=== PATIENT | female | born 1970 | race Hispanic/Latino ===

== ENCOUNTER 2019-06-27 20:39 | Emergency (ER) | payer OTHER ==
--- NOTE | 2019-06-28 00:21 | EDPHYS ---
Physician Documentation [facility] Name: Stacey Kim Age: 48 yrs Sex: Female : 1970 Arrival Date: 06/27/2019 Time: 20:42 Bed 30 Private MD: ED Physician Spencer Blount HPI: 06/27 21:53 This 48 yrs old Female presents to ER via Ambulatory with complaints of tw4 Numbness Of Arm. 21:53 The patient's problem is reported as paresthesias, in right upper extremity, in left tw4 upper extremity. Onset: The symptoms/episode began/occurred today. Duration: This was a single incident. Context: the episode(s) was witnessed, by no one. The symptoms are alleviated by nothing. The symptoms are aggravated by nothing. Associated signs and symptoms: The patient has no apparent associated signs or symptoms. Severity of symptoms: At their worst the symptoms were mild in the emergency department the symptoms are unchanged. The patient has not experienced similar symptoms in the past. Historical: - Allergies: 21:12 Latex, Natural Rubber; tr5 21:12 nafcillin sodium; tr5 - Home Meds: 21:12 None [Active]; tr5 - PSHx: 21:12 neck surgery; tr5 - Immunization history:: Adult Immunizations up to date. - Social history:: Smoking status: Patient/guardian denies using tobacco, never smoked. - Ebola Screening: : No symptoms or risks identified at this time. ROS: 21:53 Constitutional: Negative for fever, chills, and weight loss, Eyes: Negative for injury, tw4 pain, redness, and discharge, Cardiovascular: Negative for chest pain, palpitations, and edema, Respiratory: Negative for shortness of breath, cough, wheezing, and pleuritic chest pain, Abdomen/GI: Negative for abdominal pain, nausea, vomiting, diarrhea, and constipation, Back: Negative for injury and pain, MS/Extremity: Negative for injury and deformity, Skin: Negative for injury, rash, and discoloration. Exam: 21:53 Constitutional: This is a well developed, well nourished patient who is awake, alert, tw4 and in no acute distress. Head/Face: Normocephalic, atraumatic. Cardiovascular: Regular rate and rhythm with a normal S1 and S2. No gallops, murmurs, or rubs. Normal PMI, no JVD. No pulse deficits. Respiratory: Lungs have equal breath sounds bilaterally, clear to auscultation and percussion. No rales, rhonchi or wheezes noted. No increased work of breathing, no retractions or nasal flaring. Abdomen/GI: Soft, non-tender, with normal bowel sounds. No distension or tympany. No guarding or rebound. No evidence of tenderness throughout. Back: No spinal tenderness. No costovertebral tenderness. Full range of motion. MS/ Extremity: Pulses equal, no cyanosis. Neurovascular intact. Full, normal range of motion. Neuro: Awake and alert, GCS 15, oriented to person, place, time, and situation. Cranial nerves II-XII grossly intact. Motor strength 5/5 in all extremities. Sensory grossly intact. Cerebellar exam normal. Normal gait. 06/28 03:55 Radiologist reports: negative for acute changes tw4 Vital Signs: 06/27 20:54 BP 118 / 54; Pulse 76; Resp 16; Temp 99.0(O); Pulse Ox 98% ; lt1 21:12 BP 112 / 53; Pulse 88; Resp 16; Temp 98.2(O); Pulse Ox 100% on R/A; tr5 MDM: 20:55 Patient medically screened. tw4 06/28 03:54 Differential diagnosis: CVA, TIA, metabolic disorder, drug effects, peripheral tw4 neuropathy. Data reviewed: vital signs, nurses notes. Data reviewed: radiologic studies, CT scan. Data interpreted: Pulse oximetry: Interpretation: normal. Counseling: I had a detailed discussion with the patient and/or guardian regarding: the historical points, exam findings, and any diagnostic results supporting the discharge/admit diagnosis, radiology results. 06/27 21:24 Order name: CT C Spine tw4 Administered Medications: No medications were administered Disposition: 06/28/19 00:19 Discharged to Home. Impression: peripheral neuropathy. - Condition is Stable. - Discharge Instructions: Peripheral Neuropathy. - Medication Reconciliation Form, Thank You Letter, Antibiotic Education, Prescription Opioid Use form. - Follow up: Private Physician; When: Upon discharge from the Emergency Department; Reason: Recheck today's complaints, Continuance of care. - Problem is new. - Symptoms have improved. Signatures: Dispatcher [employer] EDMS Spencer Blount MD MD tw4 George Stallings RN RN tr5 Corrections: (The following items were deleted from the chart) 00:26 00:19 06/28/2019 00:19 Discharged to Home. Impression: peripheral neuropathy. Condition tr5 is Stable. Forms are Medication Reconciliation Form, Thank You Letter, Antibiotic Education, Prescription Opioid Use. Follow up: Private Physician; When: Upon discharge from the Emergency Department; Reason: Recheck today's complaints, Continuance of care. Problem is new. Symptoms have improved. tw4
--- NOTE | 2019-06-28 00:21 | ER ---
Nurse's Notes [facility] Name: Stacey Kim Age: 48 yrs Sex: Female : 1970 Arrival Date: 06/27/2019 Time: 20:42 Bed 30 Private MD: Diagnosis: peripheral neuropathy Presentation: 06/27 21:06 Presenting complaint: Patient states: "Last week i fell down the stairs last week and tr5 now i am having some left shoulder pain and tingling in both of my arms. I had neck surgery 2 years ago and it felt similar to this before i had the surgery. ". Transition of care: patient was not received from another setting of care. Onset of symptoms was June 27, 2019. Risk Assessment: Do you want to hurt yourself or someone else? Patient reports no desire to harm self or others. Initial Sepsis Screen: Does the patient meet any 2 criteria? No. Patient's initial sepsis screen is negative. Does the patient have a suspected source of infection? No. Patient's initial sepsis screen is negative. Care prior to arrival: None. 21:06 Method Of Arrival: Ambulatory tr5 21:06 Acuity: LULI 3 tr5 Historical: - Allergies: 21:12 Latex, Natural Rubber; tr5 21:12 nafcillin sodium; tr5 - Home Meds: 21:12 None [Active]; tr5 - PSHx: 21:12 neck surgery; tr5 - Immunization history:: Adult Immunizations up to date. - Social history:: Smoking status: Patient/guardian denies using tobacco, never smoked. - Ebola Screening: : No symptoms or risks identified at this time. Screenin:10 Abuse screen: Denies threats or abuse. Nutritional screening: No deficits noted. tr5 Tuberculosis screening: No symptoms or risk factors identified. Fall Risk None identified. Assessment: 21:10 General: Appears in no apparent distress. Behavior is calm, cooperative, appropriate tr5 for age. Pain: Complains of pain in left scapular area. Neuro: Level of Consciousness is awake, alert, obeys commands, Oriented to person, place, time, Stem Shaper are equal bilaterally Moves all extremities. Neuro: Reports numbness in right arm and left arm. Cardiovascular: Heart tones present Capillary refill < 3 seconds. Respiratory: Airway is patent Respiratory effort is even, unlabored, Respiratory pattern is regular, symmetrical. GI: No signs and/or symptoms were reported involving the gastrointestinal system. : No signs and/or symptoms were reported regarding the genitourinary system. EENT: No signs and/or symptoms were reported regarding the EENT system. Derm: No signs and/or symptoms reported regarding the dermatologic system. Musculoskeletal: No signs and/or symptoms reported regarding the musculoskeletal system. Vital Signs: 20:54 BP 118 / 54; Pulse 76; Resp 16; Temp 99.0(O); Pulse Ox 98% ; lt1 21:12 BP 112 / 53; Pulse 88; Resp 16; Temp 98.2(O); Pulse Ox 100% on R/A; tr5 ED Course: 20:42 Patient arrived in ED. cf2 20:45 George Stallings, RN is Primary Nurse. tr5 20:55 Spencer Blount MD is Attending Physician. tw4 21:10 Placed in gown. Bed in low position. Call light in reach. tr5 21:11 Triage completed. tr5 21:12 Arm band placed on Patient placed. tr5 22:16 CT C Spine In Process Unspecified. EDVA 06/28 00:26 No provider procedures requiring assistance completed. Patient did not have IV access tr5 during this emergency room visit. Administered Medications: No medications were administered Outcome: 00:19 Discharge ordered by . tw4 00:26 Discharged to home ambulatory. tr5 00:26 Condition: stable 00:26 Discharge instructions given to patient, Instructed on discharge instructions, follow up and referral plans. Demonstrated understanding of instructions, follow-up care. 00:26 Patient left the ED. tr5 Signatures: Dispatcher [employer] EDVA Spencer Blount MD MD tw4 Elle Patterson lt1 George Stallings, RN RN tr5 Jeremie García cf2
[2019-06-28 02:31] VITALS: BP 112/53; TEMP 98.2; O2SAT 100
--- OUTSIDE RECORDS SUMMARY | 2019-06-28 07:18 | XMS REPORT ---
:1970 [facility] Address [address] [place] [address] Dr. Corrales [address] [place] [id number] Care Team Providers Name Role Phone Unavailable Unavailable Unavailable Problems This patient has no known problems. Allergies, Adverse Reactions, Alerts This patient has no known allergies or adverse reactions. Medications This patient has no known medications.
--- NOTE | 2019-06-28 10:14 | RAD REPORT ---
EXAM DESCRIPTION: CT C Spine Wo Con CLINICAL HISTORY: Fall 1 week ago, left shoulder pain, numbness and tingling TECHNIQUE: Contiguous axial CT images obtained through the cervical spine without IV contrast. Coron al and sagittal reformatted images also provided. This exam was performed according to our departmental dose-optimization program, which includes autom ated exposure control, adjustment of the mA and/or kV according to patient size and/or use of iterati ve reconstruction technique. COMPARISON: None available for comparison FINDINGS: Vertebra: No acute fracture or subluxation. Disc spaces: Prior anterior fusion at C4-C7 with C5 and C6 corpectomy and interposition graft. Mild t o moderate multilevel degenerative changes. No canal stenosis. Multilevel foraminal compromise. Prevertebral soft tissues: Unremarkable Lung apices: Clear IMPRESSION: No acute injury. Electronically signed by: Heri Vale MD 06/27/2019 11:15 PM CREAM RIPENER Due to temporary technical issues with the PACS/Fluency reporting system, reports are being signed by the in house radiologist as a courtesy to ensure prompt reporting. The interpreting radiologist is f ully responsible for the content of the report.
== END 2019-06-28 00:26 | disposition home or self-care (01) ==
LOC: ER 20:39
DX: G62.9 Polyneuropathy, unspecified (principal); Z91.040 Latex allergy status
CPT/HCPCS: 72125; 99283

== ENCOUNTER 2021-03-31 20:17 | Emergency (ER) | payer BC, OTHER ==
--- OUTSIDE RECORDS SUMMARY | 2021-03-31 20:20 | XMS REPORT | Continuity of Care Document ---
:1970 Author Organization [facility] t Address [address] [place] [address] Care Team Providers Name Role Phone Tammy Parrish Primary Care Physician Boyd HERNANDEZ Attending Clinician Payers Payer Name Policy Type Policy Number Effective Date Expiration Date S ource Problems Condition Condition Condition Status Onset Resolution Last Treating Co mments Source Name Details Category Date Date Treatment Clinician Date Intractabl Intractabl Disease Active 0 M ethodi e headache e headache 1-15 st 00:00: Hospita 00 l Non-intrac Non-intrac Disease Active 0 M ethodi table table 1-15 st vomiting vomiting 00:00: Hospit a with with 00 l nausea nausea Fixation 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 8-03 st in spine in spine 00:00: Hospit a 00 l Cervical Cervical Disease Active [facility] spondylosi spondylosi 6-27 st s with s with 00:00: Hospita myelopathy myelopathy 00 l and and radiculopa radiculopa thy thy Cervical Cervical Disease Active [facility] spondylosi spondylosi 01-24 s with s with 00:00: Hospita myelopathy myelopathy 00 l Cervicalgi Cervicalgi Disease Active M ethodi a a 01-24 00:00: Hospita 00 l Allergies, Adverse Reactions, Alerts Allergy Allergy Status Severity Reaction(s) Onset Inactive Treating Comm ents Source Name Type Date Date Clinician Sulfamet Propensi Active Hives Method i hoxazole ty to 01-21 -Trimeth adverse 00:00: Hospita oprim reaction 00 l s to drug Latex Propensi Active Methodi ty to 01-21 adverse 00:00: Hospita reaction 00 l s to drug penicill DA Active U 2005-0 [facility] G [facility] [place] LATEX DA Active U 2005-0 [facility] 11[facility] [place] No Known DA Active U 2005-0 [facility] Contrast 11-24 [facility] Allergie [facility]: [facility] [place] No Known DA Active U 2005-0 [facility] Food 11-24 [facility] Allergie [facility]: [facility] [place] PENICILL DA Active U 2005-0 [facility] IN 11-24 [facility] [place] Family History Family Member Diagnosis Comments Start Date Stop Date Source Maternal aunt Cancer [facility] Maternal uncle Cancer [facility] Natural mother Clotting disorder Met [facility] Natural mother Hypertension [facility] Natural mother Pneumonia [facility] Natural mother Thyroid disease [facility] Natural sister Diabetes [facility] Natural brother Arthritis [facility] Natural brother Diabetes [facility] Natural brother Hypertension [facility] Natural father Diabetes [facility] Natural father Hypertension [facility] Natural father Thyroid disease [facility] Social History Social Habit Start Date Stop Date Quantity Comments Source Alcohol intake 2017-02-14 2017-02-14 Current drinker [facility]00 [facility] Alcohol Comment 2017-01-21 2017-01-21 every few months [facility] 00:[facility]00 Hospital Sex Assigned At [birth year] [facility] Smoking Status Start Date Stop Date Source Never smoker [facility] Medications Ordered Filled Start Stop Current Ordering Indication Dosage Frequency Signature Comments Components Source Medication Medication Date Date Medication? Clinician (SIG) Name Name levocetiriz 2017-0 Yes 5mg QD Take 5 mg M ethodi ine (XYZAL) 7-[address] 5 MG tablet 16:15: every Hospi ta 31 evening. l multivitami 2017- Yes 1{tbl} QD Take 1 Me thodi n with 7-[address] minerals 16:15: mouth Hospita tablet 31 daily. l Procedures This patient has no known procedures. Plan of Care Planned Activity Planned Date Details Comments Source Future Scheduled Test COVID-19 VACCINE (1) [facility] [code = COVID-19 VACCINE (1)] Future Scheduled Test Screening for [facility] malignant neoplasm of cervix (procedure) [code = 741267894] Future Scheduled Test INFLUENZA VACCINE [facility] [code = INFLUENZA VACCINE] Encounters Start End Encounter Admission Attending Care Care Encounter Source Date/Time Date/Time Type Type Clinicians Facility Department ID 2021-03-21 2021-03-21 Emergency [place], [facility] [id number] 12:48:00 20:08:00 Fernando Vidal [id number] [place] [id number] [place] [id number] Results Test Description Test Time Test Comments Results Result Sour e Comments - US TRANSVAGINAL 2020-06-15 W/PELVIS 10:50:00 [facility] : 1970 Sex: F * Patient Name: STEPHANIE EDEN Unit No: [id number] EXAMS: CPT CODE: [id number] US TRANSVAGINAL W/PELVIS 87037 Exam: Pelvic ultrasound. Exam date: June 15, 2020. CLINICAL HISTORY: Bleeding. COMPARISON: None. Real-time transabdominal and transvaginal imaging of the pelvis with spectral Doppler analysis and color-flow imaging demonstrates a 88 x 35 x 45 mm uterus. The endometrium measures 5 mm Mild irregularity of the uterine echotexture is noted with no evidence of fibroids. The right ovary measures 20 x 12 x 20 mm and has a normal sonographic appearance. Blood flow is identified in the ovary.. The left ovary measures 28 x 20 x 22 mm with a 19 mm follicular type cystBlood flow is identified within the ovary.. No free fluid or adnexal masses are identified. IMPRESSION: Minimal irregularity of the uterine echotexture with no discernible fibroids. No other significant finding identified. at 1050 Reported and signed by: Piper Hassan MD CC: Caity Anthony MD Technologist: Juan Vargas RDMS, RVT Probe: [id number] Trnscrbd D/ (1050) t.MODER.CLEO Orig Print D/T: S: 06/15/2020 (1053) [facility] NAME: STEPHANIE EDEN Radiology Department PHYS: Caity Anthony [address] : 1970 AGE: 49 SEX: F [place] [address] LOC: F.RAD PHONE #: [phone] EXAM DATE: 06/15/2020 STATUS: REG CLI FAX #: [phone] RAD NO: Page 1 Signed Report Patient Name: STEPHANIE EDEN Unit No: [id number] EXAMS: CPT CODE: [id number] US TRANSVAGINAL W/PELVIS 99857 <Continued> [facility] NAME: STEPHANIE EDEN Radiology Department PHYS: Caity Anthony [address] : 1970 AGE: 49 SEX: F [place] [address] LOC: F.RAD PHONE #: [phone] EXAM DATE: 06/15/2020 STATUS: REG CLI FAX #: [phone] RAD NO: Page 2 Signed Report - US PELVIS 2020-06-15 COMPLETE 10:50:00 [facility] : 1970 Sex: F * Patient Name: STEPHANIE EDEN Unit No: [id number] EXAMS: CPT CODE: [id number] US PELVIS COMPLETE [id number] Exam: Pelvic ultrasound. Exam date: June 15, 2020. CLINICAL HISTORY: Bleeding. COMPARISON: None. Real-time transabdominal and transvaginal imaging of the pelvis with spectral Doppler analysis and color-flow imaging demonstrates a 88 x 35 x 45 mm uterus. The endometrium measures 5 mm Mild irregularity of the uterine echotexture is noted with no evidence of fibroids. The right ovary measures 20 x 12 x 20 mm and has a normal sonographic appearance. Blood flow is identified in the ovary.. The left ovary measures 28 x 20 x 22 mm with a 19 mm follicular type cystBlood flow is identified within the ovary.. No free fluid or adnexal masses are identified. IMPRESSION: Minimal irregularity of the uterine echotexture with no discernible fibroids. No other significant finding identified. at 1050 Reported and signed by: Piper Hassan MD CC: Caity Anthony MD Technologist: Juan Vargas RDMS, RVT Probe: Trnscrbd D/ (1050) t.SDR.CER Orig Print D/T: S: 06/15/2020 (1053) [facility] NAME: STEPHANIE EDEN Radiology Department PHYS: DANIAL Caity Anthony [address] : 1970 AGE: 49 SEX: F [place], [place] [address] LOC: F.RAD PHONE #: [phone] EXAM DATE: 06/15/2020 STATUS: REG CLI FAX #: [phone] RAD NO: Page 1 Signed Report Patient Name: STEPHANIE EDEN Unit No: [id number] EXAMS: CPT CODE: [id number] US PELVIS COMPLETE [id number] <Continued> [facility] NAME: STEPHANIE EDEN Radiology Department PHYS: Caity Malone [address] : 1970 AGE: 49 SEX: F [place], [place] [address] LOC: F.RAD PHONE #: [phone] EXAM DATE: 06/15/2020 STATUS: REG CLI FAX #: [phone] RAD NO: Page 2 Signed Report - DUP AB/PEL/SC/LTD 2020-06-15 10:50:00 [facility] : 1970 Sex: F * Patient Name: STEPHANIE EDEN Unit No: [id number] EXAMS: CPT CODE: [id number] DUP AB/PEL/SC/LTD 85690 Exam: Pelvic ultrasound. Exam date: June 15, 2020. CLINICAL HISTORY: Bleeding. COMPARISON: None. Real-time transabdominal and transvaginal imaging of the pelvis with spectral Doppler analysis and color-flow imaging demonstrates a 88 x 35 x 45 mm uterus. The endometrium measures 5 mm Mild irregularity of the uterine echotexture is noted with no evidence of fibroids. The right ovary measures 20 x 12 x 20 mm and has a normal sonographic appearance. Blood flow is identified in the ovary.. The left ovary measures 28 x 20 x 22 mm with a 19 mm follicular type cystBlood flow is identified within the ovary.. No free fluid or adnexal masses are identified. IMPRESSION: Minimal irregularity of the uterine echotexture with no discernible fibroids. No other significant finding identified. at 1050 Reported and signed by: Piper Hassan MD CC: Caity Anthony MD Technologist: Juan Vargas RDMS, RVT Probe: Trnscrbd D/ (1050) t.SDR.CER Orig Print D/T: S: 06/15/2020 (1053) [facility] NAME: STEPHANIE EDEN Radiology Department PHYS: Caity Anthony [address] : 1970 AGE: 49 SEX: F [place] [address] LOC: Judi.RAD PHONE #: [phone] EXAM DATE: 06/15/2020 STATUS: REG CLI FAX #: [phone] RAD NO: Page 1 Signed Report Patient Name: STEPHANIE EDEN Unit No: [id number] EXAMS: CPT CODE: [id number] DUP AB/PEL/SC/LTD 85046 <Continued> [facility] NAME: STEPHANIE EDEN Mateusz Radiology Department PHYS: Caity Anthony [address] : 1970 AGE: 49 SEX: F [place] [address] LOC: Judi.RAD PHONE #: [phone] EXAM DATE: 06/15/2020 STATUS: REG CLI FAX #: [phone] RAD NO: Page 2 Signed Report
[2021-03-31 23:19] LABS: Absolute Lymphocytes (CBC) 3.1 K/uL (0.7-4.9); Basophils % 1.4 % (0-1.3); Hematocrit 38.3 % (36.0-45.0); MPV 8.2 fL (7.6-11.3); RBC Red Blood Cell Count 4.83 M/uL (3.86-4.86)
[2021-03-31 23:20] LABS: Protime INR 0.97
[2021-03-31 23:40] LABS: ALT/SGPT 22 U/L (12-78); AST/SGOT 14 U/L (15-37); Albumin 3.7 g/dL (3.4-5.0); Alkaline Phosphatase 77 U/L (45-117); BUN Blood Urea Nitrogen 11 mg/dL (7-18); Bicarbonate 29 mmol/L (21-32); Bilirubin Direct < 0.1 mg/dL (0-0.2); Bilirubin Total 0.3 mg/dL (0.2-1.0); Glucose Level 94 mg/dL (74-106); Magnesium 2.2 mg/dL (1.8-2.4); NT PRO-BNP 12 pg/mL (<125); Potassium 4.2 mmol/L (3.5-5.1); Protein, Total 7.3 g/dL (6.4-8.2); Sodium Level 142 mmol/L (136-145); Troponin (Emerg Dept Use Only) < 0.02 ng/mL (0.0-0.045)
[2021-04-01] MEDS ORDERED: ONDANSETRON 4 MG/2 ML VIAL ONE (01:03)
[2021-04-01] MEDS ORDERED: MORPHINE 4 MG/ML SYR ONE (01:03)
[2021-04-01] MEDS ORDERED: FAMOTIDINE 20 MG/2 ML VIAL IV ONE (01:03)
[2021-04-01] MEDS ORDERED: NA CHLORIDE 0.9% 1,000 ML ONE (01:03)
[2021-04-01] MEDS ORDERED: NA CHLORIDE 0.9% 250 ML ONE (04:12)
[2021-04-01] MEDS ORDERED: CASIRIVIMAB/IMDEVIMAB 10 ML VIAL ONE (04:13)
[2021-04-01] MEDS ORDERED: NA CHLORIDE 0.9% 50 ML ONE (06:06)
--- NOTE | 2021-04-01 06:41 | ER ---
Nurse's Notes [facility] Name: Stacey Kim Age: 50 yrs Sex: Female : 1970 Arrival Date: 03/31/2021 Time: 20:19 Bed 12 Private MD: Diagnosis: COVID Pneumonia Presentation: 03/31 20:58 Chief complaint: Patient states: chest pain and left calf pain that started em morning, was covid pos. on March 07, reports cough, shortness of breath, denies fever. Coronavirus screen: Client denies travel out of the [place] in the last 14 days. Ebola Screen: Patient negative for fever greater than or equal to 101.5 degrees Fahrenheit, and additional compatible Ebola Virus Disease symptoms Patient denies exposure to infectious person. Patient denies travel to an Ebola-affected area in the 21 days before illness onset. No symptoms or risks identified at this time. Initial Sepsis Screen: Does the patient meet any 2 criteria? HR > 90 bpm. No. Patient's initial sepsis screen is negative. Does the patient have a suspected source of infection? Yes: Productive cough/pneumonia. Risk Assessment: Do you want to hurt yourself or someone else? Patient reports no desire to harm self or others. Onset of symptoms was March 31, 2021. 20:58 Method Of Arrival: Ambulatory em 20:58 Acuity: LULI 3 em Historical: - Allergies: 21:02 nafcillin sodium; em 21:02 Latex, Natural Rubber; em 21:02 Cipro; em 21:02 Bactrim; em - PMHx: 21:03 None; em - PSHx: 21:02 Cholecystectomy; Tonsillectomy; gastric sleeve; em - Immunization history:: Client reports having NOT received the Covid vaccine. - Social history:: Smoking status: Patient denies any tobacco usage or history of. Screenin:00 Abuse screen: Denies threats or abuse. Nutritional screening: No deficits noted. em Tuberculosis screening: No symptoms or risk factors identified. Fall Risk None identified. Assessment: 04/01 00:30 General: Appears in no apparent distress. Behavior is calm, cooperative, appropriate ea for age. Pain: Complains of pain in chest Pain does not radiate. Neuro: Level of Consciousness is awake, alert, obeys commands, Oriented to person, place, time. Cardiovascular: Patient's skin is warm and dry. Respiratory: Airway is patent Respiratory effort is even, unlabored, Respiratory pattern is regular, symmetrical. Derm: Skin is pink, warm \T\ dry. 01:00 Reassessment: Ultrasound at bedside; patient reports no pain to chest or left calf at lp1 this time. 02:30 Reassessment: Patient appears in no apparent distress at this time. Patient is alert, lp1 oriented x 3, equal unlabored respirations, skin warm/dry/pink. Patient resting, eyes closed, respirations even unlabored. 03:46 Reassessment: Patient read fact sheet for Regeneron infusion; Consent signed. lp1 04:30 Reassessment: Regeneron infusion began at this time; patient being monitored. lp1 06:00 Reassessment: Patient appears in no apparent distress at this time. Patient is alert, lp1 oriented x 3, equal unlabored respirations, skin warm/dry/pink. Patient denies pain at this time. Vital Signs: 03/31 20:58 BP 142 / 70; Pulse 98; Resp 18; Temp 98.1; Pulse Ox 99% on R/A; Weight 72.57 kg; Height em 5 ft. 1 in. (154.94 cm); 04/01 01:00 BP 115 / 55; Pulse 90; Resp 22; Pulse Ox 100% on R/A; lp1 04:30 BP 113 / 74; Pulse 83; Resp 20; Temp 97.8(O); Pulse Ox 99% on R/A; lp1 04:45 BP 103 / 53; Pulse 82; Resp 20; Pulse Ox 100% on R/A; lp1 05:00 BP 101 / 60; Pulse 82; Resp 19; Pulse Ox 99% on R/A; lp1 05:15 BP 115 / 65; Pulse 72; Resp 14; Pulse Ox 100% on R/A; lp1 05:30 BP 134 / 62; Pulse 76; Resp 16; Pulse Ox 99% on R/A; lp1 05:45 BP 109 / 67; Pulse 76; Resp 16; Pulse Ox 99% on R/A; lp1 06:00 BP 106 / 65; Pulse 78; Resp 16; Pulse Ox 100% on R/A; lp1 06:15 BP 112 / 63; Pulse 79; Resp 16; Pulse Ox 99% on R/A; lp1 06:30 BP 134 / 62; Pulse 76; Resp 16; Pulse Ox 99% on R/A; lp1 06:45 BP 104 / 59; Pulse 78; Resp 19; Pulse Ox 99% on R/A; Pain 0/10; lp1 14 20:58 Body Mass Index 30.23 (72.57 kg, 154.94 cm) em ED Course: 03/31 20:19 Patient arrived in ED. cf2 20:50 Inserted saline lock: 20 gauge in right antecubital area, using aseptic technique. em Blood collected. 20:50 Initial lab(s) drawn, by me, sent to lab. em 21:00 Patient has correct armband on for positive identification. Pulse ox on. NIBP on. em 21:02 Triage completed. em 21:02 Arm band placed on. em 23:54 XRAY Chest (1 view) In Process Unspecified. EDMS 08 00:00 Sunny Gray MD is Attending Physician. [facility] 00:39 Cristin Youssef RN is Primary Nurse. lp1 01:00 COVID swab sent to lab. Flu and/or RSV swab sent to lab. lp1 01:12 CT Chest For PE Angio In Process Unspecified. EDMS 01:12 CT Abd/Pelvis - IV Contrast Only In Process Unspecified. EDMS 01:15 Patient maintains SpO2 saturation greater than 95% on room air. lp1 01:39 US Extremity Venous Unilateral Ltd In Process Unspecified. EDMS 02:49 Repeat lab(s) drawn. by me, sent to lab. lp1 02:49 No provider procedures requiring assistance completed. lp1 06:57 IV discontinued, No redness/swelling at site. Pressure dressing applied. lp1 Administered Medications: 01:00 Drug: NS 0.9% 1000 ml Route: IV; Rate: 1000 ml; Site: right antecubital; lp1 02:10 Follow up: IV Status: Completed infusion; IV Intake: 1000ml lp1 01:00 Drug: Pepcid (famotidine) 20 mg Route: IVP; Site: right antecubital; lp1 02:00 Follow up: Response: No adverse reaction lp1 04:30 Drug: REGEN-COV Dose Pack 120 mg/mL-120 mg/mL (EUA) 250 ml Route: IV; Rate: per lp1 protocol; Site: right antecubital; 05:45 Follow up: IV Status: Completed infusion; IV Intake: 260ml lp1 Intake: 02:10 IV: 1000ml; Total: 1000ml. lp1 05:45 IV: 260ml; Total: 1260ml. lp1 Outcome: 06:41 Discharge ordered by . jace 06:57 Discharged to home ambulatory. lp1 06:57 Condition: good 06:57 Discharge instructions given to patient, Instructed on discharge instructions, follow up and referral plans. medication usage, Demonstrated understanding of instructions, follow-up care, medications, Prescriptions given X 3. 07:02 Patient left the ED. lp1 Signatures: Dispatcher [employer] EDGuevara Espana RN Cristin Shankar RN RN lp1 Gale Mccann RN RN ea Frazier, Celesta 2 Sunny Gray MD MD [facility]
--- NOTE | 2021-04-01 06:41 | EDPHYS ---
Physician Documentation [facility] Name: Stacey Kim Age: 50 yrs Sex: Female : 1970 Arrival Date: 03/31/2021 Time: 20:19 Bed 12 Private MD: ED Physician Sunny Gray HPI: 04/01 00:05 This 50 yrs old Female presents to ER via Ambulatory with complaints of Chest mh7 Pain. 00:05 The patient or guardian reports chest pain that is located primarily in the substernal mh7 area, epigastric area. 00:05 Onset: 3 day(s) ago. mh7 00:05 The pain does not radiate. mh7 00:05 Associated signs and symptoms: Pertinent positives: abdominal pain, cough, lower mh7 extremity pain, shortness of breath, Pertinent negatives: diaphoresis, dizziness, headache, lower extremity swelling, lightheadedness, nausea, near syncope, palpitations, recent travel, syncope, vomiting. 00:05 The chest pain is described as sharp. Duration: The patient or guardian reports mh7 multiple episodes, that are intermittent, that wax and wane. Modifying factors: The symptoms are alleviated by nothing. the symptoms are aggravated by cough. Severity of pain: At its worst the pain was moderate yesterday, in the emergency department the pain has improved moderately. Historical: - Allergies: 03/31 21:02 nafcillin sodium; em 21:02 Latex, Natural Rubber; em 21:02 Cipro; em 21:02 Bactrim; em - PMHx: 21:03 None; em - PSHx: 21:02 Cholecystectomy; Tonsillectomy; gastric sleeve; em - Immunization history:: Client reports having NOT received the Covid vaccine. - Social history:: Smoking status: Patient denies any tobacco usage or history of. ROS: 04/01 00:05 Constitutional: Negative for fever, chills, and weight loss, Eyes: Negative for injury, mh7 pain, redness, and discharge, ENT: Negative for injury, pain, and discharge, Neck: Negative for injury, pain, and swelling, Back: Negative for injury and pain, : Negative for injury, bleeding, discharge, and swelling, MS/Extremity: Negative for injury and deformity, Skin: Negative for injury, rash, and discoloration, Neuro: Negative for headache, weakness, numbness, tingling, and seizure, Psych: Negative for depression, anxiety, suicide ideation, homicidal ideation, and hallucinations, Allergy/Immunology: Negative for hives, rash, and allergies, Endocrine: Negative for neck swelling, polydipsia, polyuria, polyphagia, and marked weight changes, Hematologic/Lymphatic: Negative for swollen nodes, abnormal bleeding, and unusual bruising. Exam: 00:05 Constitutional: This is a well developed, well nourished patient who is awake, alert, mh7 and in no acute distress. Head/Face: Normocephalic, atraumatic. Eyes: Pupils equal round and reactive to light, extra-ocular motions intact. Lids and lashes normal. Conjunctiva and sclera are non-icteric and not injected. Cornea within normal limits. Periorbital areas with no swelling, redness, or edema. Neck: Trachea midline, no thyromegaly or masses palpated, and no cervical lymphadenopathy. Supple, full range of motion without nuchal rigidity, or vertebral point tenderness. No Meningismus. Chest/axilla: Normal chest wall appearance and motion. Nontender with no deformity. No lesions are appreciated. Cardiovascular: Regular rate and rhythm with a normal S1 and S2. No gallops, murmurs, or rubs. Normal PMI, no JVD. No pulse deficits. Respiratory: Lungs have equal breath sounds bilaterally, clear to auscultation and percussion. No rales, rhonchi or wheezes noted. No increased work of breathing, no retractions or nasal flaring. Abdomen/GI: Soft, non-tender, with normal bowel sounds. No distension or tympany. No guarding or rebound. No evidence of tenderness throughout. Back: No spinal tenderness. No costovertebral tenderness. Full range of motion. Skin: Warm, dry with normal turgor. Normal color with no rashes, no lesions, and no evidence of cellulitis. MS/ Extremity: Pulses equal, no cyanosis. Neurovascular intact. Full, normal range of motion. Neuro: Awake and alert, GCS 15, oriented to person, place, time, and situation. Cranial nerves II-XII grossly intact. Motor strength 5/5 in all extremities. Sensory grossly intact. Cerebellar exam normal. Normal gait. Psych: Awake, alert, with orientation to person, place and time. Behavior, mood, and affect are within normal limits. Vital Signs: 03/31 20:58 BP 142 / 70; Pulse 98; Resp 18; Temp 98.1; Pulse Ox 99% on R/A; Weight 72.57 kg; Height em 5 ft. 1 in. (154.94 cm); 04/01 01:00 BP 115 / 55; Pulse 90; Resp 22; Pulse Ox 100% on R/A; lp1 04:30 BP 113 / 74; Pulse 83; Resp 20; Temp 97.8(O); Pulse Ox 99% on R/A; lp1 04:45 BP 103 / 53; Pulse 82; Resp 20; Pulse Ox 100% on R/A; lp1 05:00 BP 101 / 60; Pulse 82; Resp 19; Pulse Ox 99% on R/A; lp1 05:15 BP 115 / 65; Pulse 72; Resp 14; Pulse Ox 100% on R/A; lp1 05:30 BP 134 / 62; Pulse 76; Resp 16; Pulse Ox 99% on R/A; lp1 05:45 BP 109 / 67; Pulse 76; Resp 16; Pulse Ox 99% on R/A; lp1 06:00 BP 106 / 65; Pulse 78; Resp 16; Pulse Ox 100% on R/A; lp1 06:15 BP 112 / 63; Pulse 79; Resp 16; Pulse Ox 99% on R/A; lp1 06:30 BP 134 / 62; Pulse 76; Resp 16; Pulse Ox 99% on R/A; lp1 06:45 BP 104 / 59; Pulse 78; Resp 19; Pulse Ox 99% on R/A; Pain 0/10; lp1 03/31 20:58 Body Mass Index 30.23 (72.57 kg, 154.94 cm) em MDM: 06:37 Differential diagnosis: acute myocardial infarction, acute pericarditis, anxiety, mh7 coronary artery disease chest wall pain, congestive heart failure costochondritis, gastroesophageal reflux disease (GERD), myocarditis, pericarditis, pneumonia, pneumothorax, pulmonary embolus. HEART Score: History: Slightly Suspicious (0), ECG: Normal (0), Age: > 45 and < 65 years (1), Risk Factors: No Risk Factors Known (0), Troponin: < or = 1 x Normal Limit (0), Total Score = 1. Data reviewed: vital signs, nurses notes, old medical records, lab test result(s), cardiac enzymes, CBC, electrolytes, Flu: negative Covid positive. Data reviewed: EKG, radiologic studies, CT scan, plain films. Data interpreted: Pulse oximetry: on room air is 100 %. Interpretation: normal. Counseling: I had a detailed discussion with the patient and/or guardian regarding: the historical points, exam findings, and any diagnostic results supporting the discharge/admit diagnosis, lab results, radiology results, the need for outpatient follow up, to return to the emergency department if symptoms worsen or persist or if there are any questions or concerns that arise at home. Response to treatment: the patient's symptoms have resolved after treatment, the patient's blood pressure is in an acceptable range, mental status has returned to baseline, the patient no longer shows bradycardia, the patient is not short of breath, the patient is not tachycardic, the patient's pain is gone, the patient's temperature has normalized, the patient's condition has returned to base line, the patient is now symptom free. 06:41 Patient medically screened. [facility] 03/31 22:45 Order name: Basic Metabolic Panel [facility] 03/31 22:45 Order name: CBC with Diff [facility] 03/31 22:45 Order name: LFT's [facility] 03/31 22:45 Order name: Magnesium; Complete Time: 00:02 [facility] 03/31 22:45 Order name: NT PRO-BNP; Complete Time: 00:02 [facility] 03/31 22:45 Order name: PT-INR; Complete Time: 00:02 [facility] 03/31 22:45 Order name: Troponin (emerg Dept Use Only); Complete Time: 00:02 [facility] 03/31 22:46 Order name: Basic Metabolic Panel; Complete Time: 00:02 [facility] 03/31 22:46 Order name: CBC with Automated Diff; Complete Time: 00:02 [facility] 03/31 22:46 Order name: Liver (Hepatic) Function; Complete Time: 00:02 [facility] 04/01 00:22 Order name: Lipase; Complete Time: 01:46 [facility] 04/01 00:25 Order name: Influenza Screen (a \T\ B) [facility] 04/01 00:26 Order name: Influenza Screen (A ; Complete Time: 02:33 [facility] 03/31 21:15 Order name: EKG; Complete Time: 21:15 cp 03/31 21:15 Order name: EKG - Nurse/Tech; Complete Time: 01:16 cp 03/31 22:45 Order name: XRAY Chest (1 view) [facility] 03/31 22:45 Order name: Cardiac monitoring; Complete Time: 00:02 [facility] 03/31 22:45 Order name: IV Saline Lock; Complete Time: 00:02 [facility] 04/01 00:23 Order name: CT Chest For PE Angio [facility] 04/01 00:23 Order name: CT Abd/Pelvis - IV Contrast Only [facility] 04/01 00:23 Order name: US Extremity Venous Unilateral Ltd [facility] 04/01 01:55 Order name: Troponin (emerg Dept Use Only) [facility] 04/01 01:56 Order name: Troponin (Emerg Dept Use Only); Complete Time: 05:48 [facility] 04/01 02:44 Order name: SARS-COV-2 RT PCR; Complete Time: 02:55 [facility] 03/31 22:45 Order name: Labs collected and sent; Complete Time: 00:02 [facility] 03/31 22:45 Order name: O2 Per Protocol; Complete Time: 00:02 [facility] 03/31 22:45 Order name: O2 Sat Monitoring; Complete Time: 00:02 [facility] Administered Medications: 01:00 Drug: NS 0.9% 1000 ml Route: IV; Rate: 1000 ml; Site: right antecubital; lp1 02:10 Follow up: IV Status: Completed infusion; IV Intake: 1000ml 1 01:00 Drug: Pepcid (famotidine) 20 mg Route: IVP; Site: right antecubital; lp1 02:00 Follow up: Response: No adverse reaction lp1 04:30 Drug: REGEN-COV Dose Pack 120 mg/mL-120 mg/mL (EUA) 250 ml Route: IV; Rate: per lp1 protocol; Site: right antecubital; 05:45 Follow up: IV Status: Completed infusion; IV Intake: 260ml lp1 Disposition Summary: 04/01/21 06:41 Discharge Ordered Location: Home [facility] Problem: new [facility] Symptoms: have improved [facility] Condition: Stable [facility] Diagnosis - COVID Pneumonia [facility] Followup: [facility] - With: Private Physician - When: 1 - 2 days - Reason: Worsening of condition, Recheck today's complaints, Continuance of care, Re-evaluation by your physician Discharge Instructions: - Discharge Summary Sheet [facility] - Viral Respiratory Infection, [id number] [facility] - COVID-19 [facility] Forms: - Medication Reconciliation Form [facility] - Thank You Letter [facility] - Antibiotic Education [facility] - Prescription Opioid Use [facility] Prescriptions: - albuterol sulfate 90 mcg/actuation Inhalation HFA aerosol inhaler - inhale 1 puff by INHALATION route every 6 hours As needed; 1 Inhaler; Refills: [facility] 0, Product Selection Permitted - Tessalon Perles 100 mg Oral Capsule - take 1 capsule by ORAL route every 8 hours As needed; 15 capsule; Refills: 0, [facility] Product Selection Permitted - Prednisone 20 mg Oral Tablet - take 2 tablets by ORAL route once daily for 5 days; 10 tablet; Refills: 0, [facility] Product Selection Permitted Signatures: Dispatcher [employer] Guevara Hernandez RN RN em Pena, Laura, RN RN lp1 Quique Wallace PA PA cp [place], MyKena mw2 Sunny Gray MD MD [facility] Corrections: (The following items were deleted from the chart) 01:19 00:25 CORONAVIRUS+[email or web address].BRZ ordered. RADHA GARCIA
[2021-04-01 07:12] VITALS: TEMP 97.8
[2021-04-01 07:24] VITALS: O2SAT 99
[2021-04-01 07:28] VITALS: BP 104/59
--- NOTE | 2021-04-01 08:15 | RAD REPORT ---
EXAM DESCRIPTION: US - Extremity Venous Uni Ltd - 04/01/2021 1:39 am CLINICAL HISTORY: Swelling and calf pain COMPARISON: None. TECHNIQUE: Real-time sonographic evaluation of the left lower extremity deep venous system was perfo rmed. FINDINGS: Normal compressibility, flow augmentation, phasic flow and spontaneous flow is identified in the left lower extremity deep venous system. No intraluminal filling defects seen. IMPRESSION: No DVT in the left lower extremity.
--- NOTE | 2021-04-01 08:28 | RAD REPORT ---
EXAM DESCRIPTION: RAD - Chest Single View - 03/31/2021 11:54 pm CLINICAL HISTORY: CHEST PAIN COMPARISON: Chest Single View dated 01/16/2016; Chest For Pe Angio dated 04/01/2021 FINDINGS: Diffuse prominence of the pulmonary interstitium. Mild scattered bilateral airspace diseas e per The heart size is within normal limits.No acute osseous abnormality. No significant pleural eff usions or pneumothorax. ACDF in the cervical spine. IMPRESSION: Mild ill-defined bilateral airspace opacities concerning for multifocal pneumonia.
--- NOTE | 2021-04-02 11:38 | RAD REPORT ---
EXAM DESCRIPTION: CTAbdomen Pelvis W Contrast - 04/01/2021 6:34 am CLINICAL HISTORY: 50 years Female chest pain and abdominal pain. TECHNIQUE: CT angiogram of the chest using intravenous contrast. Multiplanar reformation and 3D and MIP reconstructions were performed. Additional CT images of the abdomen and pelvis were obtained imme diately following the CTA acquisition. All CT scans at this facility use dose modulation, iterative r econstruction, and/or weight based dosing when appropriate to reduce radiation dose to as low as reas onably achievable. COMPARISON: CT abdomen and pelvis 01/16/2016. FINDINGS: Chest: Pulmonary arteries: No evidence of pulmonary embolism. Aorta: No evidence of aortic dissection or aneurysm. Mediastinum: Unremarkable. No adenopathy. Heart: Heart is normal in size. No pericardial effusion. Lungs / airways: Diffuse bilateral patchy peripheral groundglass opacities. No consolidation. Airways are patent. Pleura: No significant pleural effusion. No pneumothorax. Osseous: Mild multilevel degenerative changes. Soft tissues: Unremarkable. Abdomen/pelvis: Liver: No focal lesion. Gallbladder: Status post cholecystectomy. Pancreas: Within normal limits. Spleen: Within normal limits. Kidney: A 2 mm nonobstructing stone in the right kidney. A 1.2 cm cyst in the left kidney. Adrenal glands: Within normal limits. Vascular structures: Unremarkable. Bowel: Small hiatal hernia. Postsurgical changes in the stomach. No significant distention. Appendix: Normal. Peritoneum: No free fluid or free air. Lymph Nodes: No lymphadenopathy. Reproductive: Unremarkable. Urinary bladder: Unremarkable. Osseous structures: Unremarkable. Soft tissues: Unremarkable. IMPRESSION: CTA chest: 1. No evidence of pulmonary thromboembolism. 2. Commonly reported imaging features of (COVID-19 or viral) pneumonia are present. Other processes s uch as influenza pneumonia and organizing pneumonia, as can be seen with drug toxicity and connective tissue disease, can cause a similar imaging pattern. CT abdomen and pelvis: 1. A 2 mm nonobstructing stone in the right kidney. Electronically signed by: Jay Batista MD 04/01/2021 1:39 AM CDT Due to temporary technical issues with the PACS/Fluency reporting system, reports are being signed by the in house radiologist without review as a courtesy to ensure prompt reporting. The interpreting r adiologist is fully responsible for the content of the report.
--- NOTE | 2021-04-02 11:41 | RAD REPORT ---
EXAM DESCRIPTION: CT - Chest For Pe Angio - 04/01/2021 6:33 am CLINICAL HISTORY: 50 years Female chest pain and abdominal pain. TECHNIQUE: CT angiogram of the chest using intravenous contrast. Multiplanar reformation and 3D and MIP reconstructions were performed. Additional CT images of the abdomen and pelvis were obtained imme diately following the CTA acquisition. All CT scans at this facility use dose modulation, iterative r econstruction, and/or weight based dosing when appropriate to reduce radiation dose to as low as reas onably achievable. COMPARISON: CT abdomen and pelvis 01/16/2016. FINDINGS: Chest: Pulmonary arteries: No evidence of pulmonary embolism. Aorta: No evidence of aortic dissection or aneurysm. Mediastinum: Unremarkable. No adenopathy. Heart: Heart is normal in size. No pericardial effusion. Lungs / airways: Diffuse bilateral patchy peripheral groundglass opacities. No consolidation. Airways are patent. Pleura: No significant pleural effusion. No pneumothorax. Osseous: Mild multilevel degenerative changes. Soft tissues: Unremarkable. Abdomen/pelvis: Liver: No focal lesion. Gallbladder: Status post cholecystectomy. Pancreas: Within normal limits. Spleen: Within normal limits. Kidney: A 2 mm nonobstructing stone in the right kidney. A 1.2 cm cyst in the left kidney. Adrenal glands: Within normal limits. Vascular structures: Unremarkable. Bowel: Small hiatal hernia. Postsurgical changes in the stomach. No significant distention. Appendix: Normal. Peritoneum: No free fluid or free air. Lymph Nodes: No lymphadenopathy. Reproductive: Unremarkable. Urinary bladder: Unremarkable. Osseous structures: Unremarkable. Soft tissues: Unremarkable. IMPRESSION: CTA chest: 1. No evidence of pulmonary thromboembolism. 2. Commonly reported imaging features of (COVID-19 or viral) pneumonia are present. Other processes s uch as influenza pneumonia and organizing pneumonia, as can be seen with drug toxicity and connective tissue disease, can cause a similar imaging pattern. CT abdomen and pelvis: 1. A 2 mm nonobstructing stone in the right kidney. Electronically signed by: Jay Batista MD 04/01/2021 1:39 AM CDT Due to temporary technical issues with the PACS/Fluency reporting system, reports are being signed by the in house radiologist without review as a courtesy to ensure prompt reporting. The interpreting r adiologist is fully responsible for the content of the report.
== END 2021-04-01 07:02 | disposition home or self-care (01) ==
LOC: ER 20:17
DX: U07.1 COVID-19 (principal); J12.82 Pneumonia due to coronavirus disease 2019; Z88.1 Allergy status to other antibiotic agents; Z88.8 Allergy status to other drugs, medicaments and biological substances; Z91.040 Latex allergy status; Z91.048 Other nonmedicinal substance allergy status
CPT/HCPCS: 96365; 96361; 93005; 85025; 80048; 36415 ×2; 83735; 85610; 80076; 84484 ×2; 83690; 83880; 87804 ×2; 71275; 74177; 71045; 93971; 96375; 99284; U0003; Q9967; J7050; J7030; J2405